=== PATIENT | male | born 1960 | race African-American/Black ===

== ENCOUNTER 2017-12-23 00:46 | Emergency (ER) | payer SELFPAY ==
[~2017-12-23] VITALS: Ht 170.2 cm; Wt 86.3 kg
[~2017-12-23 00:46] MED LIST: AUGMENTIN875TAB PO; BACTRIM DS1 TAB PO; LORTAB 5/3255 MG PO; NO HOME MEDS; TAM75CAP PO; ULTRAM50 M1 PO; ULTRAM50 MG PO; ZOFRAN ODT8 MG PO
[2017-12-23] MEDS ORDERED: BENADRY2 TOP (01:04)
[2017-12-23] MEDS ORDERED: CEPHALEXIN500 M1 PO (01:04)
[2017-12-23] MEDS ORDERED: BENADRYL 50MG C50 MG PO (01:04)
[2017-12-23 01:54] VITALS: BP 129/39
== END 2017-12-23 01:54 | disposition home or self-care (01) | DRG 914 ==
LOC: ED 00:46
DX: T14.8XXA Other injury of unspecified body region, initial encounter (principal); L08.9 Local infection of the skin and subcutaneous tissue, unspecified; F17.210 Nicotine dependence, cigarettes, uncomplicated; W57.XXXA Bitten or stung by nonvenomous insect and other nonvenomous arthropods, initial encounter

== ENCOUNTER 2020-05-20 17:26 | Emergency (ER) | payer SELFPAY ==
[~2020-05-20] VITALS: Ht 170.2 cm; Wt 68.2 kg
[~2020-05-20 17:26] MED LIST changes: +BENADRY2 TOP; +BENADRYL 50MG C50 MG PO; +CEPHALEXIN500 M1 PO
[2020-05-20 18:50] VITALS: BP 131/77
== END 2020-05-20 18:50 | disposition home or self-care (01) | DRG 605 ==
LOC: ED 17:26
DX: S00.33XA Contusion of nose, initial encounter (principal); F17.210 Nicotine dependence, cigarettes, uncomplicated; W20.8XXA Other cause of strike by thrown, projected or falling object, initial encounter; Y93.H2 Activity, gardening and landscaping; Y92.007 Garden or yard of unspecified non-institutional (private) residence as the place of occurrence of the external cause

== ENCOUNTER 2020-08-15 | Emergency (ER) | payer SELFPAY | END 2020-08-15 22:46 | disposition T-BLAKE | DRG 566 | PROC: 0HQEXZZ Repair Left Lower Arm Skin, External Approach (ICD-10-PCS; principal; 2020-08-15) | DX: S66.822A Laceration of other specified muscles, fascia and tendons at wrist and hand level, left hand, initial encounter (principal); S61.512A Laceration without foreign body of left wrist, initial encounter; F17.200 Nicotine dependence, unspecified, uncomplicated; W26.8XXA Contact with other sharp object(s), not elsewhere classified, initial encounter; Y92.009 Unspecified place in unspecified non-institutional (private) residence as the place of occurrence of the external cause ==

== ENCOUNTER 2023-11-21 08:25 | Emergency (ER) | payer SELFPAY ==
[2023-11-21] VITALS (15 sets, daily range): BP systolic 120–152; BP diastolic 72–101
[~2023-11-21] VITALS: Ht 170.2 cm; Wt 86.2 kg
[2023-11-21] MEDS ORDERED: ASPIRIN 81 MG/TAB PO ONE (08:45)
[2023-11-21 08:57] LABS: BASO% 0.4 % (0-3); EOS% 2.9 % (0-8); HEMATOCRIT 41.8 % (39.0-50.0); HEMOGLOBIN 14.2 g/dl (14.0-18.0); IMMATURE GRANULOCYTES 0.4 % (0.0-5.0); LYMPH% 35.3 % (15-41); MEAN CORPUSCULAR HGB 29.9 pG CALC (26.0-32.0); MONO% 8.1 % (2-13); NEUT# 2.75 thou/uL (1.82-7.42); NEUT% 52.9 % (42-76); RED BLOOD COUNT 4.75 mill/uL (4.70-6.10); RED CELL DISTRI WIDTH 12.1 % (11.5-15.5)
[2023-11-21 09:03] LABS: ALBUMIN 3.7 g/dL (3.2-5.0); ALKALINE PHOSPHATASE 69 u/l (38-126); ANION GAP 8 (6-22 (CALC)); BUN 11 mg/dL (8-23); BUN/CREATININE RATIO 14 (12-20 (CALC)); CARBON DIOXIDE 23 mmol/l (22-30); CHLORIDE 112 mmol/l (95-108); CREATININE 0.8 mg/dL (0.7-1.3); ESTIMATED GFR 100 ML/MIN (>=90 (CALC)); POTASSIUM 3.9 mmol/l (3.5-5.1); SGOT/AST 31 u/l (19-48); SODIUM 139 mmol/l (137-146); TOTAL PROTEIN 6.8 g/dL (6.3-8.2)
[2023-11-21 09:20] LABS: BILIRUBIN, TOTAL 0.7 mg/dL (0.2-1.3)
== END 2023-11-21 13:38 | disposition home or self-care (01) | DRG 313 ==
LOC: ED 08:25
PROVIDERS: Family Medicine
PROC: 0H9LXZZ Drainage of Left Lower Leg Skin, External Approach (ICD-10-PCS; principal; 2023-11-21)
DX: R07.9 Chest pain, unspecified (principal); M25.50 Pain in unspecified joint; L98.9 Disorder of the skin and subcutaneous tissue, unspecified; F17.210 Nicotine dependence, cigarettes, uncomplicated